=== PATIENT | male | born 1960 | race Caucasian/White ===

== ENCOUNTER 2020-07-10 13:32 | Emergency (ER) | payer BC, OTHER ==
[2020-07-10] MEDS ORDERED: NS IV 500 ML 500 ML IV STA (13:41)
[2020-07-10] MEDS ORDERED: ONDANSETRON 4 MG/2 ML (SDV) Z0FRAN IVP ONE (13:45)
[2020-07-10 14:07] LABS: HEMOGLOBIN 15.2 G/DL (13.3-17.7); MEAN CORPUSCULAR HEMOGLOBIN 30 PG (25-34); WHITE BLOOD COUNT 10.2 10^3/uL (4.3-11.0)
--- NOTE | 2020-07-10 14:07 | ED General ---
General Chief Complaint: Dizziness/Syncope Stated Complaint: HIGH BP; DIZZINESS; VOMITING Nursing Triage Note: Patient reports he had just finished eating lunch and became dizzy and nauseous, blood pressure high on scene per EMS. Nursing Sepsis Screen: No Definite Risk History of Present Illness Date Seen by Provider: Jul 10, 2020 Time Seen by Provider: 13:40 Initial Comments This patient is a 59-year-old male presents to the [facility] for sudden onset of left ear fullness and loss of hearing percent followed by nausea and vomiting. Patient states he had just finished eating dinner/lunch. Patient states she just felt significantly nauseous and started vomiting up everything that he ate. After vomiting patient states he still feels like he can't hear out of his left ear but is feeling much better. Patient denies dizziness. We'll do medical evaluation treatment is needed Timing/Duration: 1/2 Hour Severity: Moderate Associated Systoms: Denies Symptoms; No Chest Pain, No Cough, No Diaphoresis, No Fever/Chills, No Headaches, No Loss of Appetite, No Malaise; Nausea/Vomiting; No Rash, No Seizure, No Shortness of Air, No Syncope, No Weakness, No Other Allergies and Home Medications Allergies Coded Allergies: cinnamon (Unverified Adverse Reaction, Unknown, 07/10/20) Patient Home Medication List Home Medication List Reviewed: Yes Review of Systems Review of Systems Constitutional: No no symptoms reported, No see HPI, No chills, No diaphoresis, No dizziness, No fever, No malaise, No weakness, No weight gain, No weight loss, No other EENTM: No see HPI, No no symptoms reported, No ear discharge, No hearing loss, No ear pain, No blurred vision, No double vision, No eye pain, No tearing, No vision loss, No dental problems, No hoarseness, No mouth pain, No mouth swelling, No epistaxis, No nose congestion, No nose pain, No throat pain, No throat swelling, No other Respiratory: No no symptoms reported, No see HPI, No cough, No dyspnea on exertion, No hemoptysis, No orthopnea, No phlegm, No short of breath, No stridor, No wheezing, No other Cardiovascular: No no symptoms reported, No see HPI, No chest pain, No edema, No Hx of Intervention, No palpitations, No syncope, No vascular heart diseas, No other Gastrointestinal: No RUQ, No LUQ, No RLQ, No LLQ, No no symptoms reported, No see HPI, No abdominal pain, No constipation, No diarrhea, No dysphagia, No hematemesis, No heartburn, No jaundice, No loss of appetite, No melena; nausea, vomiting; No other Genitourinary: No no symptoms reported, No see HPI, No decreased output, No discharge, No dysuria, No frequency, No hematuria, No hesitancy, No incontinence, No nocturia, No pain, No other Musculoskeletal: No no symptoms reported, No see HPI, No back pain, No gout, No joint pain, No joint swelling, No muscle pain, No muscle stiffness, No muscle cramps, No muscle twitching, No muscle weakness, No neck pain, No other Skin: No no symptoms reported, No see HPI, No change in color, No change in hair/nails, No dryness, No hx of skin cancer, No lesions, No lumps, No pruritus, No rash, No other Psychiatric/Neurological: Denies No Symptoms Reported, Denies See HPI, Denies Anxiety, Denies Depressed, Denies Emotional Problems, Denies Headache, Denies Numbness, Denies Paresthesia, Denies Pre-Existing Deficit, Denies Seizure, Denies Tingling, Denies Tremors, Denies Weakness, Denies Other Hematologic/Lymphatic: Denies No Symptoms Reported, Denies See HPI, Denies Anemia, Denies Blood Clots, Denies Easy Bleeding, Denies Easy Bruising, Denies Swollen Glands, Denies Other All Other Systems Reviewed Negative Unless Noted: Yes Past Vcqrpzy-Xjujys-Jtrmjc Hx Patient Social History Recent Foreign Travel: No Contact w/Someone Who Travel: No Recent Infectious Disease Expo: No Physical Exam Vital Signs Vital Signs - First Documented 07/10/20 13:51 Temp 36.9 Pulse 72 Resp 18 B/P (MAP) 183/74 (110) Pulse Ox 96 O2 Delivery Room Air Capillary Refill : Less Than 3 Seconds Height, Weight, BMI Height: '" Weight: lbs. oz. kg; BMI Method: General Appearance: No Apparent Distress, WD/WN HEENT: PERRL/EOMI, TMs Normal, Normal ENT Inspection, Pharynx Normal, TM Abnormal (L) (TM is obscured due to hard ear wax.) Respiratory: Chest Non Tender, Lungs Clear, Normal Breath Sounds, No Accessory Muscle Use, No Respiratory Distress Cardiovascular: Regular Rate, Rhythm, No Edema, No Gallop, No JVD, No Murmur, Normal Peripheral Pulses Gastrointestinal: Normal Bowel Sounds, No Organomegaly, No Pulsatile Mass, Non Tender, Soft Neurologic/Psychiatric: Alert, Oriented x3, No Motor/Sensory Deficits, Normal Mood/Affect Skin: Normal Color, Warm/Dry Progress/Results/Core Measures Suspected Sepsis Recent Fever Within 48 Hours: No Infection Criteria Present: None New/Unexplained Altered Menta: No Sepsis Screen: No Definite Risk SIRS Temperature: Pulse: 72 Respiratory Rate: 18 Laboratory Tests 07/10/20 13:50: White Blood Count 10.2 Blood Pressure 183 /74 Mean: 110 Laboratory Tests 07/10/20 13:50: Creatinine 0.85, Platelet Count 230, Total Bilirubin 0.4 Results/Orders Lab Results Laboratory Tests Test 07/10/20 13:50 Range/Units White Blood Count 10.2 4.3-11.0 10^3/uL Red Blood Count 5.13 4.35-5.85 10^6/uL Hemoglobin 15.2 13.3-17.7 G/DL Hematocrit 43 40-54 % Mean Corpuscular Volume 85 80-99 FL Mean Corpuscular Hemoglobin 30 25-34 PG Mean Corpuscular Hemoglobin Concent 35 32-36 G/DL Red Cell Distribution Width 13.2 10.0-14.5 % Platelet Count 230 130-400 10^3/uL Mean Platelet Volume 9.6 7.4-10.4 FL Immature Granulocyte % (Auto) 1 % Neutrophils (%) (Auto) 69 42-75 % Lymphocytes (%) (Auto) 23 12-44 % Monocytes (%) (Auto) 6 0-12 % Eosinophils (%) (Auto) 2 0-10 % Basophils (%) (Auto) 0 0-10 % Neutrophils # (Auto) 7.0 1.8-7.8 X 10^3 Lymphocytes # (Auto) 2.3 1.0-4.0 X 10^3 Monocytes # (Auto) 0.6 0.0-1.0 X 10^3 Eosinophils # (Auto) 0.2 0.0-0.3 10^3/uL Basophils # (Auto) 0.0 0.0-0.1 10^3/uL Immature Granulocyte # (Auto) 0.1 0.0-0.1 10^3/uL Sodium Level 138 135-145 MMOL/L Potassium Level 3.5 L 3.6-5.0 MMOL/L Chloride Level 102 98-107 MMOL/L Carbon Dioxide Level 24 21-32 MMOL/L Anion Gap 12 5-14 MMOL/L Blood Urea Nitrogen 11 7-18 MG/DL Creatinine 0.85 0.60-1.30 MG/DL Estimat Glomerular Filtration Rate > 60 BUN/Creatinine Ratio 13 Glucose Level 153 H 70-105 MG/DL Calcium Level 9.0 8.5-10.1 MG/DL Corrected Calcium 8.8 8.5-10.1 MG/DL Total Bilirubin 0.4 0.1-1.0 MG/DL Aspartate Amino Transf (AST/SGOT) 23 5-34 U/L Alanine Aminotransferase (ALT/SGPT) 22 0-55 U/L Alkaline Phosphatase 87 40-136 U/L Total Protein 8.0 6.4-8.2 GM/DL Albumin 4.2 3.2-4.5 GM/DL My Orders Orders - CLIVE FRAZIER MD Cbc With Automated Diff (07/10/20 13:41) Comprehensive Metabolic Panel (07/10/20 13:41) Urinalysis (07/10/20 13:41) Abdomen Flat & Upright/Decub (07/10/20 13:41) Ct Head Wo (07/10/20 13:41) Ondansetron Injection (Zofran Injectio (07/10/20 13:45) Ns Iv 500 Ml (Sodium Chloride 0.9%) (07/10/20 13:41) Medications Given in ED Current Medications Medications Dose Ordered Sig/Castillo Route Start Time Stop Time Status Last Admin Dose Admin Ondansetron HCl 4 mg ONCE ONCE IVP 07/10/20 13:45 07/10/20 13:46 DC 07/10/20 13:48 4 MG Vital Signs/I&O 07/10/20 13:51 Temp 36.9 Pulse 72 Resp 18 B/P (MAP) 183/74 (110) Pulse Ox 96 O2 Delivery Room Air Capillary Refill : Less Than 3 Seconds Blood Pressure Mean: 110 Progress Note : Time: 14:52 Progress Note Negative evaluation in the emergency department. However signs and symptoms consistent possible inner ear infection or fluid behind the ear. Patient feeling much better. Patient was placed on a prescription of meclizine. Patient is encouraged to follow up with his primary care physician and possible referral to ENT. Patient is discharged home. Departure Impression Primary Impression: Vertigo Additional Impression: Nausea & vomiting Disposition: 01 HOME, SELF-CARE Condition: Stable Departure-Patient Inst. Decision time for Depature: 14:53 Referrals: [facility] (PCP) Primary Care Physician CORRIE QUIROGA APRN (Family) Primary Care Physician Patient Instructions: Vertigo (a Type of Dizziness) (DC) Add. Discharge Instructions: Drink plenty of fluids. Kmgw-eal-ledvvqc antihistamines as needed. Meclizine as prescribed. Follow-up with your PCP in 2-3 days for further evaluation treatment. May need referral to ear nose and throat doctor and evaluate further. Issues. All discharge instructions reviewed with patient and/or family. Voiced understanding. Scripts Meclizine HCl (Meclizine HCl) 12.5 Mg Tablet 12.5 MG PO TID, #20 TAB 0 Refills Prov: CLIVE FRAZIER MD 07/10/20 CLIVE FRAZIER MD Jul 10, 2020 14:07
[2020-07-10 14:08] LABS: BASOPHILS % (AUTO) 0 % (0-10); EOSINOPHILS # (AUTO) 0.2 10^3/uL (0.0-0.3); EOSINOPHILS % (AUTO) 2 % (0-10); HEMATOCRIT 43 % (40-54); LYMPHOCYTES # (AUTO) 2.3 X 10^3 (1.0-4.0); LYMPHOCYTES % (AUTO) 23 % (12-44); MEAN CORPUSCULAR HGB CONC 35 G/DL (32-36); MEAN CORPUSCULAR VOLUME 85 FL (80-99); MEAN PLATELET VOLUME 9.6 FL (7.4-10.4); MONOCYTES # (AUTO) 0.6 X 10^3 (0.0-1.0); MONOCYTES % (AUTO) 6 % (0-12); NEUTROPHILS % (AUTO) 69 % (42-75); PLATELET COUNT 230 10^3/uL (130-400)
--- NOTE | 2020-07-10 14:18 | Diagnostic Imaging Report ---
PROCEDURE: CT head without contrast. TECHNIQUE: Multiple contiguous axial images were obtained through the brain without the use of intravenous contrast. Auto Exposure Controls were utilized during the CT exam to meet ALARA standards for radiation dose reduction. INDICATION: Sudden onset dizziness, left ear pain and hearing loss. FINDINGS: The mastoid air cells and middle ear cavities bilaterally were clear, partially visualized orbits, paranasal sinuses and calvarium unremarkable. No intracranial hemorrhage, hydrocephalus, edema, mass, mass effect or evidence for elevation of the intracerebral pressures. IMPRESSION: Normal CT head. Dictated by: Dictated on workstation # [id number]
[2020-07-10 14:21] LABS: CHLORIDE 102 MMOL/L (98-107); POTASSIUM 3.5 MMOL/L (3.6-5.0); SODIUM 138 MMOL/L (135-145)
[2020-07-10 14:22] LABS: ALANINE AMINOTRANSFERASE 22 U/L (0-55); ALBUMIN 4.2 GM/DL (3.2-4.5); ALKALINE PHOSPHATASE 87 U/L (40-136); BILIRUBIN,TOTAL 0.4 MG/DL (0.1-1.0); BUN/CREATININE RATIO 13; CARBON DIOXIDE 24 MMOL/L (21-32); CREATININE SERUM 0.85 MG/DL (0.60-1.30); GFR ESTIMATED > 60; GLUCOSE 153 MG/DL (70-105)
--- NOTE | 2020-07-10 14:33 | Diagnostic Imaging Report ---
INDICATION: Nausea and vomiting, hearing loss, dizziness. FINDINGS: Bowel gas pattern is normal. No abnormal fecal loading. No air-fluid levels. No pneumatosis. No free gas. No obstructive features. IMPRESSION: Unremarkable supine and upright abdominal radiographs. Dictated by: Dictated on workstation # [id number]
[2020-07-10] MEDS ORDERED: MECLIZINE 25 MG (ANTIVERT) TAB PO STA (14:53)
[2020-07-10] MEDS ORDERED: MECL-172 PO (14:54)
[2020-07-10] MEDS ORDERED: PROMETHAZINE INJ 25 MG/ML (PHENERGAN) AMP ONE (15:19)
[2020-07-10] MEDS ORDERED: PROMETHAZINE INJ 25 MG/ML (PHENERGAN) AMP IVP ONE (15:30)
[2020-07-10 15:38] VITALS: BP 166/83
== END 2020-07-10 15:10 | disposition home or self-care (01) ==
LOC: ER FS 13:34
DX: R42 Dizziness and giddiness (principal); R11.2 Nausea with vomiting, unspecified; Z20.828 Contact with and (suspected) exposure to other viral communicable diseases
CPT/HCPCS: 36415; 70450; 74019; 80053; 85025; 99284; U0002; 87635

== ENCOUNTER → 2020-10-22 | Outpatient (CLI) | payer BC ==
[~2020-10-22] MED LIST: GADOBUTROL 10 MMOL/10 ML (GADAVIST) VIAL IV ONE; MECL-173 PO
--- NOTE | 2020-10-22 12:28 | Diagnostic Imaging Report ---
Indication: Left-sided hearing loss. Correlation limited to routine head CT performed 07/10/2020. Multiplanar multisequence pre and post IV contrast-enhanced brain MRI performed. In addition to routine brain sequences, dedicated thin slices through the IACs performed given the history. Findings: There is no evidence for mastoid effusion. No cerebellopontine angle mass or mass effect is found. The 7th and 8th cranial nerve complexes appear symmetric and unremarkable with no abnormal intra or extra canalicular enhancement or mass effect. There is a small homogenously enhancing extra-axial mass along the left temporoparietal convexity measuring 1 cm in long axis with a depth or thickness of 5 mm. This is most consistent with a tiny meningioma. No other space-occupying lesion. No suspicious mass found. This patient has mild to moderate predominantly subcortical and periventricular white matter lesions, T2 hyperintense and most conspicuous on the FLAIR weighted pulse sequences. None of these lesions show diffusion restriction and none of them showed mass effect or abnormal enhancement. While they may reflect sequelae of chronic small vessel disease correlate with risk factors for vasculopathy. No focal or generalized cerebral edema. No findings of an elevation of the intracranial pressures. The orbits and paranasal sinuses unremarkable. There was no evidence for acute or chronic hemorrhage. Ventricular system nondilated and nondisplaced. Impression: 1. Unremarkable appearance of the IACs. 2. Nonspecific white matter disease. 3. Left convexity tiny extra-axial meningioma. Dictated by: Dictated on workstation # [id number]
== END ==
LOC: RAD 10:15
PROVIDERS: ATTEND Otolaryngology Otolaryngology/Facial Plastic Surgery
DX: H91.92 Unspecified hearing loss, left ear (principal); G93.89 Other specified disorders of brain; R90.82 White matter disease, unspecified
CPT/HCPCS: 70553